=== PATIENT | female | born 1960 | race Caucasian/White ===

== ENCOUNTER 2019-03-14 21:52 | Emergency (ER) | payer BC ==
--- OUTSIDE RECORDS SUMMARY | 2019-03-14 22:09 | XMS REPORT | Continuity of Care Document ---
:1960 External Reference #:[id number] Author Name Christine Polk M.D. (transmitted by agent of provider Melia Vines) Address [address] [place] [address], [place] [address] Care Team Providers Name Role Phone Arnav Antoine MD - Family Medicine Care Team Information Logging Truck Driver [phone] Problems Active Problems Provider Date Cervical myelopathy Christine Polk M.D. Onset: 10/15/2015 Note: 08/21/96: traumatic C5-6 fracture with dislocation, spinal fusion and residual myelomalacia at C5 Localized, primary osteoarthritis Lois Nielsen M.D. Onset: 12/12/2015 Social History Type Date Description Comments Sex Unknown ETOH Use Has consumed alcohol in the past Tobacco Use Start: Unknown Patient has never smoked Smoking Status Reviewed: 02/09/19 Patient has never smoked Exercise Type/Frequency Does not exercise Allergies, Adverse Reactions, Alerts Active Allergies Reaction Severity Comments Date Hydrocodone 07/17/2013 Codeine 07/17/2013 Oxycodone 06/16/2018 Medications Active Medications SIG Qnty Indications Ordering Date Provider Propranolol HCL ER take 1 by mouth 30caps G43.919 Christine Polk, 2018 80mg each night M.D. Caps ER 24HR Aspercreme W/Lidocaine apply twice 6units Jay Watson, 06/28/2018 4% daily to the M.D. Cream painful joints as needed Thumb Brace ortho thumb Ramses Cortes, 07/09/[address] [facility] metagrip side right size 1 Nortriptyline HCL 3 capsule every 270caps Christine Polk, 09/22/2012 10mg night at bedtime M.D. Capsules Qnasl Unknown 80mcg/Act Aerosol Lyrica take 1 by mouth Unknown 100mg Capsules each day Tizanidine HCL take 1/2-1 by Unknown 4mg Tablets mouth at bedtime, prn muscle spasm Aleve 2 bid Unknown 220mg Tablets Desloratadine 1 by mouth every Unknown 5mg Tablets day Butalbital-Apap 1 a week as Unknown 50-325mg needed po Tablets Excedrin Extra Strength 2-3 tab by mouth Unknown prn. [id number] Tablets Imitrex as needed Unknown 50mg Cyclobenzaprine HCL As needed Unknown 10mg Lyrica 1-2 by mouth as Unknown 75mg Capsules needed Cymbalta one po qd Unknown 30mg Caps DR Part Lidocaine as needed Unknown Colace by mouth twice a Unknown 500mg day Medications Administered in Office Medication SIG Qnty Indications Ordering Provider Date Celestone 3 mg and 3mg Ramses Cortes MD 02/21/2018 Injection Celestone 3 mg and 3mg Ramses Cortes MD 02/21/2018 Injection Celestone 3 mg and 3mg Ramses Cortes MD 07/09/2016 Injection Celestone 3 mg and 3mg Ciera Tabares-Young, 04/29/2015 Injection M.D. Celestone 3 mg and 3mg Ciera Tabares-Young, 06/04/2014 Injection M.D. Depomedrol 80MG Lois Nielsen M.D. 05/22/2014 Injection Celestone 3 mg and 3mg Ciera Tabares-Young, 01/29/2014 Injection M.D. Celestone 3 mg and 3mg Ciera Tabares-Young, 07/24/2013 Injection M.D. Celestone 3 mg and 3mg Ciera Tabares-Young, 07/17/2013 Injection M.D. Celestone 3 mg and 3mg Ciera Tabares-Young, 02/14/2013 Injection M.D. Celestone 3 mg and 3mg Ciera Tabares-Young, 01/15/2013 Injection M.D. Celestone 3 mg and 3mg Ciera Tabares-Young, 01/15/2013 Injection M.D. Celestone 3 mg and 3mg Ciera Tabares-Young, 01/15/2013 Injection M.D. Celestone 3 mg and 3mg Ciera Tabares-Young, 11/22/2012 Injection M.D. Celestone 3 mg and 3mg Ciera Tabares-Young, 11/22/2012 Injection M.D. Celestone 3 mg and 3mg Ciera Tabares-Young, 07/28/2012 Injection M.D. Celestone 3 mg and 3mg Ciera Tabares-Young, 07/28/2012 Injection M.D. Celestone 3 mg and 3mg Ciera Tabares-Young, 05/29/2012 Injection M.D. Celestone 3 mg and 3mg Ciera Tabares-Young, 05/29/2012 Injection M.D. Celestone 3 mg and 3mg Ciera Tabares-Young, 02/21/2012 Injection M.D. Celestone 3 mg and 3mg Ciera Tabares-Young, 02/21/2012 Injection M.D. Celestone 3 mg and 3mg Ciera Tabares-Young, 11/26/2011 Injection M.D. Celestone 3 mg and 3mg Ciera Tabares-Young, 11/26/2011 Injection M.D. Immunizations Description No Information Available Vital Signs Date Vital Result Comment 02/09/2019 2:38pm Height 64 inches 5'4" Weight 119.00 lb Heart Rate 72 /min BP Systolic Sitting 128 mmHg BP Diastolic Sitting 76 mmHg Respiratory Rate 18 /min BMI (Body Mass Index) 20.4 kg/m2 11/08/2018 9:47am Height 64 inches 5'4" Weight 122.00 lb Heart Rate 64 /min BP Systolic Sitting 110 mmHg BP Diastolic Sitting 78 mmHg Respiratory Rate 16 /min BMI (Body Mass Index) 20.9 kg/m2 Results Description No Information Available Procedures Description No Information Available Medical Devices Description No Information Available Encounters Type Date Location Provider Dx Diagnosis Office Visit 11/08/2018 [facility] Christine Polk, M54.2 Cervicalgia 9:30a M.Kely G43.919 Migraine, unsp, intractable, without status migrainosus Office Visit 08/23/2018 Rheumatology Jay M18.11 Unil primary 8:20a [facility] Watson M.D. osteoarth of first carpometacarp joint, r hand Assessments Date Code Description Provider 02/09/2019 G43.919 Migraine, unspecified, intractable, without Christine Polk M.D. status migrainos 02/09/2019 M54.2 Cervicalgia Christine Polk M.D. 11/08/2018 M54.2 Cervicalgia Christine Polk M.D. 11/08/2018 G43.919 Migraine, unspecified, intractable, without Christine Polk M.D. status migrainos 08/23/2018 M18.11 Unilateral primary osteoarthritis of first Jay Watson M.D. carpometacarpal j Plan of Treatment Future Appointment(s):03/07/2019 11:30 am - Christine Polk M.D. at [facility]/23/2019 10:15 am - Francesca Teague MD at [facility] Tpkebnqvbze72/30/2019 - Christine Polk M.D.G43.919 Migraine, unspecified, intractable, without status migrainosNew Medication:Propranolol HCL ER 80 mg - take 1 by mouth each [id number] Cervicalgia Functional Status Description No Information Available Mental Status Description No Information Available Referrals Refer to Reason for Referral Status Appt Date Gurpreet Garibay MD medical marijuana and assessment and other Sent options for treating pain in setting of remote trauma with subsequent myelopathy, neck pain and headaches. [address] [place] [address] [phone] [facility] Healthy Please provide a heart healthy anti Sent Living inflammatory diet to reduce migraines and joint osteoarthritis [address] [place] [address] [phone]
--- OUTSIDE RECORDS SUMMARY | 2019-03-14 22:09 | XMS REPORT | Continuity of Care Document ---
:1960 External Reference #:[id number] Author Name Christine Polk M.D. 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 Onset: 10/15/2015 Note: 08/21/96: traumatic C5-6 fracture with dislocation, spinal fusion and residual myelomalacia at C5 Localized, primary osteoarthritis Lois Nielsen M.D. Onset: 12/12/2015 Social History Type Date Description Comments Sex Unknown ETOH Use Has consumed alcohol in the past Tobacco Use Start: Unknown Patient has never smoked Smoking Status Reviewed: 03/07/19 Patient has never smoked Exercise Type/Frequency Does not exercise Allergies, Adverse Reactions, Alerts Active Allergies Reaction Severity Comments Date Hydrocodone 07/17/2013 Codeine 07/17/2013 Oxycodone 06/16/2018 Medications Active Medications SIG Qnty Indications Ordering Date Provider Topiramate 1 tab by mouth 42tabs G43.919 Christine Polk, 03/07/2019 25mg Tablets qhs, increase by M.D. 1 tablet every 7-10 days until 4 tablets by mouth at bedtime Propranolol HCL ER take 1 by mouth 30caps G43.919 Christine Polk, 2018 80mg each night M.D. Caps ER 24HR Aspercreme W/Lidocaine apply twice 6units Jay Watson, 06/28/2018 4% daily to the M.D. Cream painful joints as needed Thumb Brace ortho thumb Ramses Cortes, 07/09/2016 [facility] metagrip side right size 1 Nortriptyline HCL [...] Strength 2-3 tab by mouth Unknown prn. [phone] Tablets Imitrex as needed Unknown 50mg Cyclobenzaprine [...] Injection Celestone 3 mg and 3mg Ciera Siddiqui, 04/29/2015 Injection M.D. Celestone 3 mg and 3mg Ciera Siddiqui, 06/04/2014 Injection M.D. Depomedrol 80MG Lois Nielsen M.D. 05/22/2014 Injection Celestone 3 mg and 3mg Ciera Siddiqui, 01/29/2014 Injection M.D. Celestone 3 mg and 3mg Ciera Siddiqui, 07/24/2013 Injection M.D. Celestone 3 mg and 3mg Ciera Siddiqui, 07/17/2013 Injection M.D. Celestone 3 mg and 3mg Ciera Siddiqui, 02/14/2013 Injection M.D. Celestone 3 mg and [...] Available Vital Signs Date Vital Result Comment 03/07/2019 11:49am Height 64 inches 5'4" Weight 126.50 lb Heart Rate 64 /min BP Systolic Sitting 110 mmHg BP Diastolic Sitting 80 mmHg Respiratory Rate 16 /min BMI (Body Mass Index) 21.7 kg/m2 02/09/2019 2:38pm Height 64 inches 5'4" Weight 119.00 lb Heart Rate 72 /min BP Systolic Sitting 128 mmHg BP Diastolic Sitting 76 mmHg Respiratory Rate 18 /min BMI (Body Mass Index) 20.4 kg/m2 Results Description No Information Available Procedures Description No Information Available Medical Devices Description No Information Available Encounters Type Date Location Provider Dx Diagnosis Office Visit 02/09/2019 [facility] Christine Jam, G43.919 Migraine , unsp, 2:30p [facility] Valerio intractable, without status migrainosus M54.2 Cervicalgia Office Visit 11/08/2018 9:30a [facility] Christine Polk M54.2 Cervicaljoycelyn Luo G43.919 Migraine, unsp, intractable, without status migrainosus Assessments Date Code Description Provider 03/07/2019 G43.919 Migraine, unspecified, intractable, without Christine Polk M.D. status migrainos 03/07/2019 M54.2 Cervicalgia Christine Polk M.D. 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 status migrainos 02/09/2019 M54.2 Cervicalgia Christine Polk M.D. 11/08/2018 M54.2 Cervicalgia Christine Polk M.D. 11/08/2018 G43.919 Migraine, unspecified, intractable, without Christine Polk M.D. status migrainos Plan of Treatment Future Appointment(s):06/22/2019 1:00 pm - Christine Polk M.D. at [facility]/23/2019 10:15 am - Francesca Teague MD at [facility] Koiqjoomtqw72/25/2019 - Christine Polk M.D.G43.919 Migraine, unspecified, intractable, without status migrainosNew Medication:Topiramate 25 mg - 1 tab by mouth qhs, increase by 1 tablet every 7-10 days until 4 tablets by mouthat bedtimeFollow up:3-4 monthsRecommendations:wait until your mood improves, before trying [id number] CervicalgiaRecommendations:all abortive medications including aleve should be maximum of 2 days a week. When headaches are frequent, we must consider prophylactic medications to decrease frequency and severity of migraines. Some Options: CGRP monoclonal antibodies [id number] Mood disorder due to known physiological condition with deprRecommendations:stop propranolol Functional Status Description No Information Available Mental Status Description No Information Available Referrals Refer to Reason for Referral Status Appt Gurpreet Garibay MD medical marijuana and assessment and other Sent options for treating pain in setting of remote trauma with subsequent myelopathy, neck pain and headaches. [address] [place] [address] [phone]
[2019-03-15] MEDS ORDERED: NS 0.9% 1000 ML** 1,000 ML IV ONE (01:33)
[2019-03-15] MEDS ORDERED: diPHENhydraMINE IV* 50 MG/ML 1 ml VIAL (BENADRYL) IV ONE (01:33)
[2019-03-15] MEDS ORDERED: PROCHLORPERAZINE INJ 5 MG/ML 2 ML VIAL IV ONE (01:34)
[2019-03-15] MEDS ORDERED: Ketorolac INJ* 30 MG/ML 1 ML VIAL IV PUSH ONE (02:47)
--- NOTE | 2019-03-15 02:54 | ED ---
Headache - HPI Summary HPI Summary: Pt is a 58 y/o F presenting to the ED with a chief complaint of a headache initially onset about 3 days ago, but much worse on 03/14/19. 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 On 03/14/19, around 1030 the pain came on, and at 1100 she had PT where they did trigger point massage which worsened the pain. She describes it as pounding diffusely around her head, like someone is squeezing her whole head, but mostly in the back. She vomited a couple of times , which has never happened with her other headaches. She also notes being sensitive to most sensory things, such as lights, sound, smell, or temperature. She denies any obvious changes in her vision, fever, or weakness. She had some difficulty walking earlier. Her neurologist is Dr. Polk, and they have been trying to figure out why her headaches have been worsening recently. - History Of Current Complaint Chief Complaint: EDHeadache Stated Complaint: HEADACHE PER PT Time Seen by Provider: 03/15/19 01:17 Hx Obtained From: Patient Onset/Duration: Gradual Onset, Started days ago, Still Present Initially Headache Was: Mild Currently Pain Is: Moderate Timing: Constant, Days Character: Migraine Location of Headache: Diffuse Aggravating Factor: Bright Lights, Other - anything sensory Allevating Factors: Nothing Associated Signs And Symptoms: Nausea, Vomiting - Allergies/Home Medications Allergies/Adverse Reactions: Allergies Allergy/AdvReac Type Severity Reaction Status Date / Time codeine Allergy Unknown Verified 03/14/19 21:59 Reaction Details hydrocodone Allergy Unknown Verified 03/14/19 21:59 Reaction Details latex Allergy Unknown Verified 03/14/19 21:59 Reaction Details oxycodone Allergy Unknown Verified 03/14/19 22:00 Reaction Details PMH/Surg Hx/FS Hx/Imm Hx Previously Healthy: Yes Endocrine/Hematology History: Denies: Hx Diabetes Cardiovascular History: Denies: Hx Hypertension, Hx Pacemaker/ICD Respiratory History: Reports: Hx Asthma - mild Denies: Hx Chronic Obstructive Pulmonary Disease (COPD) GI History: Denies: Hx Ulcer History: Denies: Hx Dialysis, Hx Renal Disease Musculoskeletal History: Denies: Hx Rheumatoid Arthritis, Hx Osteoporosis Sensory History: Denies: Hx Hearing Aid Psychiatric History: Denies: Hx Panic Disorder - Cancer History Hx Chemotherapy: No Hx Radiation Therapy: No - Surgical History Surgery Procedure, Year, and Place: TONSILECTOMY. 1977 LEFT FOOT FX REPAIR. 1990 LEFT KNEE TORN CART REPAIR THEN 2017 TOTAL KNEE. 1991 RT ANKLE REPAIR. 1996 CSP SURGERY WITH TITANIUM PLATE Infectious Disease History: No Infectious Disease History: Denies: Hx Hepatitis, Hx Human Immunodeficiency Virus (HIV), Traveled Outside the [place] in Last 30 Days - Family History Known Family History: Negative: Diabetes - Social History Alcohol Use: None Substance Use Type: Reports: None Smoking Status (MU): Never Smoked Tobacco Review of Systems Negative: Fever Positive: Photophobia. Negative: Blurred Vision, Diplopia Positive: Vomiting, Nausea Positive: Other - difficulty walking Positive: Headache. Negative: Weakness All Other Systems Reviewed And Are Negative: Yes Physical Exam - Summary Physical Exam Summary: Constitutional: Well-developed, Well-nourished, Alert. (-) Distressed Skin: Warm, Dry HENT: Normocephalic; Atraumatic Eyes: Conjunctiva normal Neck: Musculoskeletal ROM normal neck. (-) JVD, (-) Stridor, (-) Tracheal deviation Cardio: Rhythm regular, rate normal, Heart sounds normal; Intact distal pulses. Radial pulses are 2+ and symmetric. (-) Murmur Pulmonary/Chest wall: Effort normal. (-) Respiratory distress, (-) Wheezes, (-) Rales Abd: Soft. (-) Tenderness, (-) Distension, (-) Guarding, (-) Rebound Musculoskeletal: (-) Edema Lymph: (-) Cervical adenopathy Neuro: Alert, Oriented x3, Strength normal, Cranial nerves II-XII are grossly intact. (-) Dysmetria, (-) Nystagmus, (-) Ataxia by finger to nose testing, (-) Sensory deficit. Ambulates with normal gait. NIH 0. Psych: Mood and affect Normal Triage Information Reviewed: Yes Vital Signs On Initial Exam: Initial Vitals Temp Pulse Resp BP Pulse Ox 97.8 F 75 16 147/59 98 03/14/19 21:54 03/14/19 21:54 03/14/19 21:54 03/14/19 21:54 03/14/19 21:54 Vital Signs Reviewed: Yes - [place] Coma Scale Best Eye Response: 4 - Spontaneous Best Motor Response: 6 - Obeys Commands Best Verbal Response: 5 - Oriented Coma Scale Total: 15 Procedures - Sedation Patient Received Moderate/Deep Sedation with Procedure: No Diagnostics - Vital Signs Vital Signs Temp Pulse Resp BP Pulse Ox 03/15/19 02:44 80 135/78 97 03/15/19 02:14 70 135/76 95 03/15/19 00:25 97.7 F 76 16 126/60 99 03/14/19 21:54 97.8 F 75 16 147/59 98 - Laboratory Lab Statement: Any lab studies that have been ordered have been reviewed, and results considered in the medical decision making process. - CT Brain CT CT Interpretation Completed By: Radiologist Summary of CT Findings: No acute intracranial hemorrhage or infarct. ED physician has reviewed this report. Re-Evaluation - Re-Evaluation 1st re-eval Re-Evaluation Time: 02:48 Change: Improved Comment: Pt's headache is now rated at a 4/10. I discussed plan for discharge and she is stable and agreeeable. I offered to do a lumbar puncture for further testing but she declined. Headache Course/Dx - Course Course Of Treatment: Patient is here with a migraine. Patient has a complex migraine history. Patient had a normal neurologic exam upon arrival. However, patient states this headache was atypical for her say CT head was performed which was negative. Patient was offered LP but declined to rule out subarachnoid hemorrhage. Patient was given a migraine cocktail with improvement in her headache. - Diagnoses Provider Diagnoses: Migraine headache Discharge ED - Sign-Out/Discharge Documenting (check all that apply): Patient Departure - Discharge Plan Condition: Stable Disposition: HOME Patient Education Materials: Migraine Headache (ED) Referrals: Arnav Antoine MD [Primary Care Provider] - Additional Instructions: Please follow up with your primary care provider within the next 1-3 days. Come back to the emergency department with any new or worsening symptoms, including new weakness or worsening headache. - Billing Disposition and Condition Condition: STABLE Disposition: Home - Attestation Statements Document Initiated by Scribe: Yes Documenting Scribe: Maribel Galindo Provider For Whom Scribe is Documenting (Include Credential): Rafael Lagunas MD. Scribe Attestation: Maribel De Leon, scribed for Rafael Lagunas MD. on 03/15/19 at 0506. Scribe Documentation Reviewed: Yes Provider Attestation: The documentation as recorded by the scribe, Maribel Galindo accurately reflects the service I personally performed and the decisions made by me, Rafael Lagunas MD. Status of Scribe Document: Viewed
[2019-03-15 02:56] VITALS: BP 143/77
== END 2019-03-15 03:00 | disposition home or self-care (01) ==
LOC: ED 21:52
DX: G43.909 Migraine, unspecified, not intractable, without status migrainosus (principal); J45.909 Unspecified asthma, uncomplicated; Z96.652 Presence of left artificial knee joint; Z88.5 Allergy status to narcotic agent; Z91.040 Latex allergy status
CPT/HCPCS: 70450; 96361; 96374; 96375; 99282; J0780; J1200; J1885